=== PATIENT | male | born 1955 ===

== ENCOUNTER 2018-07-01 09:45 | Outpatient (CLI) | payer OTHER | END 2018-07-01 09:48 | disposition home or self-care (01) | LOC: SONOGRAMA 09:45 | DX: E04.1 Nontoxic single thyroid nodule (principal) ==

== ENCOUNTER 2020-10-24 05:00 | Day surgery (SDC) | payer OTHER ==
[~2020-10-24 05:00] MED LIST: ARMOUR THYROID120 M1 PO; ATACAN PO
[2020-10-24] MEDS ORDERED: NEURONTIN600 M1 PO (09:21)
[2020-10-24] MEDS ORDERED: COLACE100 MG PO (09:21)
[2020-10-24] MEDS ORDERED: PERCOCET 5-3251 EACH PO (09:21)
== END 2020-10-24 11:40 | disposition home or self-care (01) ==
LOC: CIR.AMB 05:00
PROVIDERS: ATTEND Surgery
DX: K40.90 Unilateral inguinal hernia, without obstruction or gangrene, not specified as recurrent (principal); Z20.828 Contact with and (suspected) exposure to other viral communicable diseases

== ENCOUNTER 2021-05-23 08:00 | Outpatient (CLI) | payer OTHER ==
[~2021-05-23 08:00] MED LIST changes: +COLACE100 MG PO; +NEURONTIN600 M1 PO; +PERCOCET 5-3251 EACH PO
== END 2021-05-23 08:30 | disposition home or self-care (01) ==
LOC: PPH VACUNA 08:00
DX: Z23 Encounter for immunization (principal)

== ENCOUNTER 2023-12-20 12:50 | Emergency (ER) | payer OTHER ==
[~2023-12-20] VITALS: Ht 180.3 cm; Wt 83.9 kg
[2023-12-20] MEDS ORDERED: CRESTOR10 MG (12:59)
[2023-12-20] MEDS ORDERED: KETOROLAC TROMETHAMINE 30 MG VIAL IM STA (14:03)
== END 2023-12-20 15:18 | disposition home or self-care (01) ==
LOC: ER 12:50
DX: R07.81 Pleurodynia (principal)
CPT/HCPCS: 71250; 96372; 99284; J1885